=== PATIENT | female | born 1950 | race African-American/Black ===

== ENCOUNTER 2018-09-08 17:58 | Inpatient (IN) | payer OTHER, MEDICARE ==
[~2018-09-08] VITALS: Ht 172.7 cm; Wt 126.1 kg
[~2018-09-08 17:58] MED LIST: ATA25 PO; BISA5ECT2 PO; DEPER500 PO; DIPH25TA53 PO; DOCU100C5 PO; ESCI20TA PO; ESCI20TA47 PO; METF500T PO; SIMV20TA1 PO; VIC PO
--- NOTE | 2018-09-08 18:00 | NUR ---
PT BIBA BLS TO BED 5
[2018-09-08] MEDS ORDERED: NACL 0.9% 1,000 ML IV ONE (18:05)
[2018-09-08 18:13] VITALS: BP 149/86
--- NOTE | 2018-09-08 18:21 | NUR ---
DILAN WITH C/O BEHAVIORAL OUTBURST AT [facility]. STAFF REPORTS THAT SHE HAS BEEN REFUESING TO TAKE HER MEDICATIONS FOR 2 MONTHS AND TODAY BECAME VERY AGGRESSIVE AND WAS BROUGHT IN BY [facility] ACCOMPANIED BY SEAMUS MESA WHO PLACED HER ON A 51-50 HOLD DUE TO HOMICIDAL THOUGHTS AND THREATS AND RISK TO SELF DUE TO REFUESING LIFE SUSTAINING MEDICATIONS. UPON ARRIVAL PATIENT ANGRY, YELLING, THREATENING STAFF. HX:DM BIPOLAR, HTN, HLD, HYPOTHYROIDISM, DEMENTIA, MODD DISORDER, IMPULSE DISORDER
[2018-09-08 18:38] LABS: BASOPHILS # (AUTO) 0.1 K/uL (0.00-0.22); BASOPHILS % (AUTO) 1.2 % (0.0-2.0); EOSINOPHILS # (AUTO) 0.4 K/uL (0-0.4); EOSINOPHILS % (AUTO) 5.7 % (0.0-4.0); HEMATOCRIT 45.4 % (36-48); HEMOGLOBIN 14.7 g/dL (12.0-16.0); LYMPHOCYTES # (AUTO) 2.1 K/uL (2.5-16.5); LYMPHOCYTES % (AUTO) 32.5 % (20.5-51.1); MEAN CORPUSCULAR HEMOGLOBIN 27 pg (27-31); MEAN CORPUSCULAR HGB CONC 32 g/dL (33-37); MEAN CORPUSCULAR VOLUME 83.5 fL (80-94); MONOCYTES # (AUTO) 0.6 K/uL (0.8-1.0); MONOCYTES % (AUTO) 10.2 % (1.7-9.3); NEUTROPHILS # (AUTO) 3.2 K/uL (1.8-7.7); NEUTROPHILS % (AUTO) 50.4 % (42.2-75.2); PLATELET COUNT (AUTO) 272 K/uL (140-450); RED BLOOD CELL COUNT(AUTO) 5.43 MIL/uL (4.20-5.40); RED CELL DISTRIBUTION WIDTH 14.5 % (11.6-13.7); WHITE BLOOD COUNT (AUTO) 6.3 K/uL (4.8-10.8)
--- NOTE | 2018-09-08 18:50 | NUR ---
Dr. Gupta at bedside.
--- NOTE | 2018-09-08 18:53 | NUR ---
Note sherly in EDM - 09/08/18 at 1853 by TORREY DILAN WITH C/O BEHAVIORAL OUTBUSRT AT [facility]. STAFF REPORTS THAT SHE HAS BEEN REFUESING TO TAKE HER MEDICATIONS FOR 2 MONTHS AND TODAY BECAME VERY AGGRESSIVE AND WAS BROUGHT IN BY [facility] ACCOMPANIED BY SEAMUS MESA WHO PLACED HER ON A 51-50 HOLD DUE TO HOMICIDAL THOUGHTS AND THREATS AND RISK TO SELF DUE TO REFUESING LIFE SUSTAINING MEDICATIONS. HX:DM BIPOLAR, HTN, HLD, HYPOTHYROIDISM, DEMENTIA, MODD DISORDER, IMPULSE DISORDER
[2018-09-08] MEDS ORDERED: diphenhydrAMINE 50 MG/ML VIAL IM ONE (18:55)
[2018-09-08] MEDS ORDERED: LORazepam 2 MG/ML VIAL IM ONE (18:55)
[2018-09-08] MEDS ORDERED: HALOPERIDOL IM 5 MG/ML VIAL IM ONE (18:55)
[2018-09-08 19:01] LABS: ACETAMINOPHEN < 0.5 ug/ml (10-30); SALICYLATE < 2.8 mg/dL (2.8-20.0)
--- NOTE | 2018-09-08 19:05 | NUR ---
REPORT GIVEN TO [facility] FOR CONTINUED CARE. SITTER AT BEDSIDE.
[2018-09-08 19:12] LABS: PROTHROMBIN TIME 10.1 secs (10.8-13.4)
--- NOTE | 2018-09-08 19:15 | NUR ---
RESTRAINT LOG DOCUMENTED AND STARTED BY AM NURSE.
--- NOTE | 2018-09-08 19:15 | NUR ---
CRITICAL LAB VALUE REPORTED TO DR CARRINGTON, LACTATE ACID 2.3
[2018-09-08 19:18] LABS: ANION GAP 18.3 (8-16); CARBON DIOXIDE 21.6 mmol/L (21-32); CREATININE 1.4 mg/dL (0.6-1.3); POTASSIUM 3.9 mmol/L (3.5-5.1)
[2018-09-08 19:25] LABS: ALBUMIN 2.9 g/dL (3.4-5.0); TOTAL BILIRUBIN 0.2 mg/dL (0.0-1.0)
--- NOTE | 2018-09-08 19:31 | NUR ---
PER TELEPSYCH REQEST SENT
[2018-09-08 19:52] LABS: APPEARANCE,URINE CLEAR (CLEAR); BILIRUBIN,URINE NEGATIVE (NEGATIVE); BLOOD, URINE NEGATIVE (NEGATIVE); COLOR,URINE YELLOW (YELLOW); LEUKOCYTE ESTERASE ,URINE NEGATIVE (NEGATIVE); NITRITE, URINE NEGATIVE (NEGATIVE); UGLUCOSE NEGATIVE (NEGATIVE)
[2018-09-08 20:01] LABS: BARBITURATE, URINE NEG. ng/ml (NEG <=200); BENZODIAZEPINE, URINE POS. ng/mL (NEG <=200); CANNABINOID, URINE NEG. ng/mL (NEG <=50); COCAINE, URINE NEG. ng/mL (NEG <=300); OPIATE, URINE NEG. ng/mL (NEG <=2000); PHENCYCLIDINE SCREEN,URINE NEG. ng/mL (NEG <=25)
--- NOTE | 2018-09-08 20:30 | NUR ---
PATIENT CURRENTLY RESTING IN [facility], CALM AND COOPERATIVE. PATIENT BREATHING IS EVEN AND UNLABORED, EQUAL RISE AND FALL OF CHEST. PATIENT DENIES ANY SI/HI AT THIS TIME, SITTER AT BEDSIDE, NO ACUTE DISTRESS NOTED. WILL CONTINUE TO MONITOR
--- NOTE | 2018-09-08 20:30 | NUR ---
ALL RESTRAINTS REMOVED, SKIN INTACT, +PMSC X4. PATIENT CALM COOPERATIVE;VSS; NO ACUTE DISTRESS NOTED, DR CARRINGTON MADE AWARE. SITTER AT BEDSIDE, WILL CONTINE TO MONITOR
--- NOTE | 2018-09-08 22:26 | NUR ---
LM WANG ON SPEAKING WITH PT.
--- NOTE | 2018-09-08 22:33 | NUR ---
DR CHRISTIANSEN FROM TELE PSYCH REMOVED HOLD ON PATIENT, SPOKE TO DR CARRINGTON.
--- NOTE | 2018-09-08 23:38 | NUR ---
DR CARRINGTON AT BEDSIDE
[2018-09-08] MEDS ORDERED: ZIPRASIDONE MESYLATE 20 MG/ML VIAL IM ONE (23:40)
--- NOTE | 2018-09-08 23:40 | NUR ---
PATIENT BEGAN TO MAKE THREATS STATING "YOU'RE ALL GOING TO " WHEN ASKED WHO IS GOING TO KILL US? PATIENT STATED "YOU'LL SEE" DR CARRINGTON MADE AWARE, NO NEED TO PUT PATIENT BACK ON HOLD. CHARGE NURSE RAIN AT BEDSIDE, WITNESSED AND HEARD ENTIRE CONVERSATION
[2018-09-08] MEDS ORDERED: WATER STERILE 10 ML MC ONE (23:53)
--- NOTE | 2018-09-09 | NUR ---
PT REFUSE VITAL SIGNS. NO S/S OF PAIN OR DISTRESS NOTED ALL FALLS PRECAUTIONS IN PLACE.
[2018-09-09] MEDS ORDERED: [UNRECOGNIZED DRUG - OTHER] PO SCH (00:05)
[2018-09-09] MEDS ORDERED: ACETAMINOPHEN PO SCH (00:05)
[2018-09-09] MEDS ORDERED: ONDANSETRON 4 MG/2 ML VIAL IVP PRN (00:10)
[2018-09-09] MEDS ORDERED: ACETAMINOPHEN 325 MG TAB PO PRN (00:10)
[2018-09-09] MEDS ORDERED: ALBUTEROL 0.083% 2.5 MG/3 ML NEBU INH PRN (00:10)
[2018-09-09 00:45] VITALS: BP 144/71
--- NOTE | 2018-09-09 00:45 | NUR ---
Patient will be admitted to care of DR AKINS. Admited to MS 124A. Will go to room 124A. Belongings list completed. Report to NEGRO NAJERA .
--- NOTE | 2018-09-09 01:10 | NUR ---
RECEIVED PT FROM ER NURSE VIA ERICKSON, PT AWAKE, ALERT OX 3. PT UNCOOPERATIVE, PT REFUSED TO BE TAKEN VITAL SIGNS. REFUSED MRSA SWAB, WITNESSED BY ED STAFF. PT RECEIVED W/ NS INFUSING AT 100 ML/HR AT INDEX FINGER LEFT G 20. ORIENTED TO UNIT, PLACED AT LOWEST BED POSITION, CALL LIGHTS WITHIN REACH AND BED ALARM ACTIVATED. WILL CONTINUE TO MONITOR.
--- NOTE | 2018-09-09 01:14 | NUR ---
PT PLACED IN COMFORTABLE POSITION. CHECKED THE NS AT LEFT INDEX FINGER, STILL INFUSING AND PATENT. PT INTERVIEWED BUT PT REFUSED TO ANSWER QUESTION. LEFT ON BED, PT TRYING TO SLEEP.
--- NOTE | 2018-09-09 01:25 | NUR ---
RECEIVED PATIENT ON ROOM AIR. HOWEVER, PATIENT REFUSING TO BE ASSESSED AT THIS TIME. STATES "NO! I AM FINE." REFUSES AUSCULTATION AND PULSE OX MONITOR. NO RESPIRATORY DISTRESS NOTED AT THIS TIME. NO PRN HHN GIVEN. WILL CONTINUE TO MONITOR.
--- NOTE | 2018-09-09 03:30 | NUR ---
BM X 1; URINE X 2. CHANGED PT AND TURNED PT TO SIDE
--- NOTE | 2018-09-09 04:00 | NUR ---
TIED TO TAKE THE VITAL SIGNS OF PT. PATIENT REFUSED.
--- NOTE | 2018-09-09 06:00 | NUR ---
AGAIN TRIED VITAL SIGNS. PT WAS CURTLY SAYING SOMETHING INCOMPREHENSIBLE, AND NOT ALLOWING ME TO TAKE HER VITAL SIGNS.
--- NOTE | 2018-09-09 07:30 | NUR ---
RECEIVED BEDSIDE REPORT FROM REINALDO TOM. PT STABLE, SLEEPING, BUT EASILY AROUSABLE. NO SIGNS OF DISTRESS NOTED. NO REDNESS ,SWELLING, OR INFLAMMATION NOTED ON IV SITE. CALL GREEN WITHIN REACH. BED IN LOWEST POSITION. SAFETY MEASURES IN PLACE. PLAN OF CARE REVIEWED.
--- NOTE | 2018-09-09 08:46 | NUR ---
PATIENT HAS BEEN SCREENED AND CATEGORIZED HIGH NUTRITION RISK. PATIENT WILL BE SEEN WITHIN 1-2 DAYS OF ADMISSION. 09/09/18MAYTE MONTIEL RD
[2018-09-09] MEDS ORDERED: metFORMIN 500 MG TAB PO SCH (09:00)
[2018-09-09] MEDS: DOCUSATE SODIUM 100 MG GELCAP PO SCH ×2 (09:00→21:00)
[2018-09-09] MEDS: DIVALPROEX 500 MG TABER PO SCH ×2 (09:00→21:00)
[2018-09-09] MEDS: BISACODYL 5 MG TABEC PO SCH ×2 (09:00→21:00)
[2018-09-09] MEDS: hydrOXYzine HCL 25 MG TAB PO SCH ×2 (09:00→21:00)
[2018-09-09] MEDS ORDERED: NON-FORMULARY ITEM (Docusate Sodium 100 MG) PO SCH (09:00)
[2018-09-09] MEDS: ESCITALOPRAM 20 MG TAB PO SCH (09:00)
--- NOTE | 2018-09-09 09:40 | NUR ---
SCHEDULED MEDICATIONS NOT GIVEN DUE TO PT REFUSED ALL MEDICATIONS. PT STABLE AND AWAKE.
--- NOTE | 2018-09-09 10:00 | NUR ---
DR AYALA AT THE BEDSIDE.
--- NOTE | 2018-09-09 10:30 | NUR ---
Dope Mixer Note: I received a call from information security officer Tiffanie from [facility] . She stated patient has been living at their facility since 2012. She stated patient's conservator is Kike Tarango . I requested Tiffanie to please fax me conservatorship documents indicating Kike is patient's conservator. I provided Tiffanie with case management/criminal justice social worker dept fax number. Tiffanie stated patient is on a 7 day bed hold. She told me prior to hospital admission patient was refusing medication and was combative at [facility]. She stated patient has a daughter named Fe Tiago and reported Fe is not involved with patient's care at [facility]. Tiffanie told me she has not talked to Fe before.
--- NOTE | 2018-09-09 11:30 | NUR ---
Employee Placement Specialist Note: I called and spoke with adult services librarian Tiffanie from [facility] . I informed Tiffanie that I have not received conservator documents. She told me she will fax them to me soon.
--- NOTE | 2018-09-09 11:32 | NUR ---
09/09/18 RD INITIAL ASSESSMENT COMPLETED PLEASE REFER TO NUTRITION ASSESSMENT UNDER CARE ACTIVITY FOR ESTIMATED NUTRITIONAL NEEDS. 1. CONTINUE CCHO 60 GM DIET TOLERATED 2. PT REFUSED DIET EDUCATION ON WEIGHT AND DIABETES 3. RD TO FOLLOW-UP 3-5 DAYS, MODERATE RISK MAYTE MONTIEL RD
--- NOTE | 2018-09-09 11:40 | NUR ---
RECEIVED ORDER FOR PSYCH FACILITY, PATIENT ON [address]. CALLED [facility], AND SPOKE WITH MICHELLE. SHE SAID THAT THEY HAVE NOT BEEN ABLE TO MOVE ANY PATIENTS FOR LAST 4 DAYS. DID FAX ORDER, FACE SHEET, MEDICATION SHEET, H&P AND 5150 HOLD TO THEM AT [phone]
--- NOTE | 2018-09-09 13:00 | NUR ---
PT REPOSITIONED, LINENS AND GOWN CHANGED. PT STABLE.
--- NOTE | 2018-09-09 15:06 | NUR ---
No updates from contacted facilties at this time. will continue to look for placement throughout shift. will update unit when new information has been received. No beds available at following hospitals: Called [facility] and s/w Tiara, No vacancies at this time. Called [facility] and s/w Kurt, No Beds available today. Called [facility] and s[facility]w [facility], No beds available today. Called [facility] and s/w Mady, reviewing charts at this time. Called [facility] and s/w Barbara, no Beds at this time. Called [facility] and s/w Favian, No beds available at this time. Called [facility] and s/w Rosy, No vacancies at this time. Called [facility] and s/w Reinaldo, they have no beds at this time and are still reviewing charts. Called [facility] and s/w Isaac they have no beds at this time and are still reviewing charts. Called [facility] and s/w Annelise, they have no beds at this time and are still reviewing charts.
--- NOTE | 2018-09-09 15:07 | NUR ---
Packet faxed to [facility] for review.
--- NOTE | 2018-09-09 15:51 | NUR ---
Machine Mover Note: I called public guardian/conservator office and spoke with Emma. Per Emma, Kike Tarango is patient's conservator. I requested Emma to please fax me conservator documents. I provided her with case management/social media coordinator fax number. Per Emma, she Kike is not in the office today and she will fax me documents soon.
--- NOTE | 2018-09-09 16:30 | NUR ---
PT REFUSED VITAL SIGNS TO BE TAKEN. PT STABLE AND AWAKE.
--- NOTE | 2018-09-09 19:13 | NUR ---
RECEIVED PATIENT ON ROOM AIR. NO DISTRESS NOTED. PATIENT DENIES SHORTNESS OF BREATH. NO HHN GIVEN; NOT INDICATED AT THIS TIME. PATIENT REFUSES ASSESSMENT. PATIENT REFUSES AUSCULTATION. PATIENT APPEARS IRRITABLE. PATIENT STATES "I DON'T NEED ANYTHING! THERE'S NOTHING WRONG WITH ME, I'M HEALTHY!". RN MADE AWARE OF PATIENT REFUSAL TO BE ASSESSED. WILL CONTINUE TO MONITOR.
--- NOTE | 2018-09-09 19:20 | NUR ---
RECEIVED REPORT FORM BRANDI BURNS RN DAYSHIFT NURSE AT BEDSIDE FOR CONTINUITY OF CARE, PT IN STABLE CONDITION.
--- NOTE | 2018-09-09 19:25 | NUR ---
ENDORSED PT TO REINALDO LEACH FOR CONTINUITY OF CARE. PT STABLE, AWAKE, AND ALERT.
--- NOTE | 2018-09-09 20:00 | NUR ---
PT REFUSED AL VITALS SIGNS SAYING "IM FINE". PT HAS HX OF COMBATIVE BEHAVIOR, PRIMARY NURSE VERBALIZED UNDERSTANDING AND LEFT ROOM.
[2018-09-09] MEDS: SIMVASTATIN 20 MG TAB PO SCH (21:00)
--- NOTE | 2018-09-09 21:00 | NUR ---
PT REFUSED ALL MEDICATIONS. WILL TRY LATER AND OFFER MEDICATIONS
--- NOTE | 2018-09-09 22:00 | NUR ---
PT OFFERED MEDICATIONS DUE AGAIN, PT HAD JUST BEEN TURNED AND CHANGE. PT SAID I AM CHANGING I DONT WANT ANY MEDICATION. NURSE VERBALIZED UNDERSTANDING.
--- NOTE | 2018-09-09 23:00 | NUR ---
PT IN BED SLEEPING SIDE RAILS UP X2 AND CALL GREEN IN REACH.
--- NOTE | 2018-09-10 00:29 | NUR ---
Follow up calls were made to the contracted psych facilities. [facility], spoke with Duane. [facility], spoke with Joaquin. [facility], spoke with Rob. [facility], spoke with Francesca. [facility], spoke with Naila. [facility], spoke with Sarita. will notify the unit when there is new information.
--- NOTE | 2018-09-10 01:00 | NUR ---
PT TURNED AND CHANGED AND REPOSITIONED.
--- NOTE | 2018-09-10 03:00 | NUR ---
CHECKED IN ON PT, SHE SAID GET OUT OF HERE PRIMARY NURSE LEFT.
--- NOTE | 2018-09-10 05:45 | NUR ---
PT TURNED AND CHANGED.
--- NOTE | 2018-09-10 06:30 | NUR ---
PT REFUSE LAB DRAWS.
--- NOTE | 2018-09-10 07:20 | NUR ---
GAVE REPORT TO GENNARO RN DAYSHIFT NURSE AND DEACON RN DAYSHIFT NURSE AT BEDSIDE. PT IN STABLE CONDITION BUT WAS VERY RUDE AND INSULTING TO ONCOMING NURSES SAYING" I DON;T WANT YOU TO TAKE CARE OF ME, YOUR A DIKE". OTHERWISE PT IN BED RESTING QUIETLY WITH NO S/S OF PAIN OR DISTRESS NOTED.
--- NOTE | 2018-09-10 07:21 | NUR ---
RECEIVED BEDSIDE REPORT FROM TOOL DESIGNER APPRENTICE NURSE. PATIENT REFUSES TO STATE NAME AND OR ANSWER ANY OTHER QUESTIONS AT THIS TIME. PATIENT IS BEDBOUND AND INCONTINENT AND WILL ALLOW STAFF TO CLEAN AND REPOSITION HER, BUT WILL NOT ALLOW FOR NURSING ASSESSMENTS OR FOR VITAL SIGNS TO BE TAKEN. SHE STATES "I AM HEALTHY NOTHING IS WRONG WITH MY BLOOD PRESSURE OR MY HEALTH, YOU CAN GO DO SOMETHING ELSE." NO SIGNS OF DISTRESS ON RA, BED IS IN LOW POSITION, CALL LIGHT IS WITHIN REACH.
--- NOTE | 2018-09-10 08:28 | NUR ---
PT NON COOPERATIVE. VERY AGGRESSIVE. REFUSED ALL FORMS OF TX OR ASSESSMENT. VERBALLY ABUSIVE.
[2018-09-10] MEDS: hydrOXYzine HCL 25 MG TAB PO SCH ×2 (09:00→21:00)
[2018-09-10] MEDS: DOCUSATE SODIUM 100 MG GELCAP PO SCH ×2 (09:00→21:00)
[2018-09-10] MEDS: ESCITALOPRAM 20 MG TAB PO SCH (09:00)
[2018-09-10] MEDS: BISACODYL 5 MG TABEC PO SCH ×2 (09:00→21:00)
[2018-09-10] MEDS: DIVALPROEX 500 MG TABER PO SCH ×2 (09:00→21:00)
--- NOTE | 2018-09-10 09:59 | NUR ---
PATIENT REFUSED ALL 0900 MEDICATIONS. LISTED EACH MEDICATION AND EDUCATED PATIENT ON RISKS ASSOCIATED WITH REFUSAL OF MEDICATIONS. PATIENT AGAIN REFUSED. DR. LE AWARE OF PATIENT REFUSAL. PATIENT IN BED IN NO DISTRESS. WILL CONTINUE TO MONITOR THE PATIENT
--- NOTE | 2018-09-10 11:02 | NUR ---
PATIENT IS SLEEPING. NO SIGNS OF DISTRESS ON RA. WILL CONTINUE TO MONITOR THE PATIENT. CALL LIGHT WITHIN PATIENTS REACH
--- NOTE | 2018-09-10 12:49 | NUR ---
PATIENT DID NOT EAT LUNCH. SHE JUST HAD HER JUICE. SHE SAID SHE HAS NO APPETITE
--- NOTE | 2018-09-10 13:48 | NUR ---
PATIENT SLEEPING IN BED, NO SIGNS OF DISTRESS, BED IN LOW POSITION, CALL LIGHT IN REACH. WILL CONTINUE TO MONITOR.
--- NOTE | 2018-09-10 15:22 | NUR ---
PATIENT RESTING IN BED IN THE RIGHT LATERAL POSITION, AWAKE, BUT RESTING. NO SIGNS OF DISTRESS, DENIES PAIN, AND IS STILL REFUSING ANY OTHER ASSESSMENT. ASKED IF THERE WAS ANYTHING I COULD GET HER OR DO FOR HER AND SHE SAID "NO". BED IS IN LOW POSITION, CALL LIGHT IS WITHIN REACH.
--- NOTE | 2018-09-10 17:07 | NUR ---
PATIENT IS AWAKE, LAYING IN BED. NO SIGNS OF DISTRESS. WILL CONTINUE TO MONITOR THE PATIENT
--- NOTE | 2018-09-10 19:16 | NUR ---
GAVE BEDSIDE REPORT TO DRYWALL CARRIER NURSE, PATIENT ENDORSED IN STABLE CONDITION
--- NOTE | 2018-09-10 19:35 | NUR ---
RECEIVED BEDSIDE REPORT FROM DAY SHIFT NURSE FOR CONTINUITY OF CARE. PATIENT AWAKE, ALERT, RESPIRATION EVEN UNLABORED ON ROOM AIR. DENIES PAIN. SKIN IS WARM AND DRY. ABLE TO REPOSITION HERSELF. ABLE TO VERBALIZES NEEDS. REFUSED VITAL SIGNS TO BE TAKEN. SHE STATES" I AM HEALTHY NOTHING IS WRONG WITH ME." EDUCATED THE RISK AND BENEFITS X3 STILL REFUSED. PLAN OF CARE WAS DISCUSSED. BED IS AT LOW POSITION. ALL SAFETY MEASURE IN PLACE. CALL LIGHT WITHIN REACH AND VERBALIZES ITS USE. WILL CONTINUE TO MONITOR.
[2018-09-10] MEDS: SIMVASTATIN 20 MG TAB PO SCH (21:00)
--- NOTE | 2018-09-10 21:20 | NUR ---
PATIENT AWAKE, ALERT RESPIRATION EVEN UNLABORED ON ROOM AIR. PATIENT REFUSED ALL 2100 MEDICATION. EDUCATED PATIENT ON RISK AND BENEFITS X3 STILL REFUSED. WILL CONTINUE TO MONITOR
--- NOTE | 2018-09-10 22:00 | NUR ---
PATIENT LYING IN BED SLEEPING RESPIRATION EVEN UNLABORED ON ROOM AIR. DENIES PAIN. NO DISTRESS NOTED. CALL LIGHT WITHIN REACH AND VERBALIZES ITS USE. WILL CONTINUE TO MONITOR.
--- NOTE | 2018-09-11 | NUR ---
PATIENT REFUSED VITAL SIGNS. EDUCATED THE RISK AND BENEFITS X2 REFUSED. NO DISTRESS NOTED. WILL CONTINUE TO MONITOR.
--- NOTE | 2018-09-11 01:50 | NUR ---
CHECKED PATIENT. PATIENT SLEEPING RESPIRATION EVEN UNLABORED ON ROOM AIR. NO DISTRESS NOTED. WILL CONTINUE TO MONITOR.
--- NOTE | 2018-09-11 04:33 | NUR ---
at this time there are still no beds available at the following facilities, [facility], [place], [facility], and [facility] , will endorse to incoming shift to continue to look for placement.
--- NOTE | 2018-09-11 04:38 | NUR ---
CHECKED PATIENT. PATIENT SLEEPING RESPIRATION EVEN UNLABORED ON ROOM AIR. NO DISTRESS NOTED. WILL CONTINUE TO MONITOR
--- NOTE | 2018-09-11 06:44 | NUR ---
PATIENT REFUSED BLOOD DRAW. EDUCATED THE RISK AND BENEFITS X2 STILL REFUSED. WILL CONTINUE TO MONITOR.
--- NOTE | 2018-09-11 07:06 | NUR ---
ENDORSED PATIENT TO DAY SHIFT NURSE FOR CONTINUITY OF CARE. PATIENT STABLE AT THIS TIME.
--- NOTE | 2018-09-11 07:07 | NUR ---
RECEIVED BEDSIDE REPORT FROM PROGRAM RESEARCH SPECIALIST NURSE. PATIENT IS REFUSING TO ANSWER ANY QUESTIONS, PATIENT IS UNCOOPERATIVE. SKIN IS INTACT. PATIENT BEDBOUND, INCONTINENT. FALL RISK PROTOCOL IN PLACE. NO IV ACCESS, PATIENT REFUSED. BED IN LOW POSITION. CALL LIGHT WITHIN REACH, WILL CONTINUE TO MONITOR THE PATIENT.
--- NOTE | 2018-09-11 08:00 | NUR ---
PATIENT REFUSES TO GET VITALS CHECKS. EDUCATED ON THE IMPORTANCE TO CHECK VITALS AND THE RISKS OF REFUSING. SHE SAID SHE STILL DOES NOT WANT US TO CHECK.
--- NOTE | 2018-09-11 08:26 | NUR ---
Pt refuse all care. No tx given or SOB noted at this time. Will continue to monitor Pt.
[2018-09-11] MEDS: DOCUSATE SODIUM 100 MG GELCAP PO SCH ×2 (09:00→21:00)
[2018-09-11] MEDS: DIVALPROEX 500 MG TABER PO SCH ×2 (09:00→21:00)
[2018-09-11] MEDS: hydrOXYzine HCL 25 MG TAB PO SCH ×2 (09:00→21:00)
[2018-09-11] MEDS: BISACODYL 5 MG TABEC PO SCH ×2 (09:00→21:00)
[2018-09-11] MEDS: ESCITALOPRAM 20 MG TAB PO SCH (09:00)
--- NOTE | 2018-09-11 09:32 | NUR ---
PATIENT REFUSED ALL MEDICATIONS. PATIENT SAID GET OUT I DONT WANT YOU HERE. SHE REFUSES ALL TREATMENT AT THIS TIME. DR LE IS AWARE. PATIENT WAITING FOR IN PSYCH PLACEMENT. CALL LIGHT WITHIN REACH. WILL CONTINUE TO MONITOR THE PATIENT Addendum: 09/11/18 at 0939 by Sharonda Benson RN EDUCATED THE RISKS OF REFUSING
--- NOTE | 2018-09-11 11:00 | NUR ---
PATIENT LAYING IN BED. ASKED IF SHE NEEDED ANYTHING AT THIS TIME, SHE SAID NO. BED IN LOW POSITION. CALL LIGHT WITHIN REACH. PATIENT ABLE TO MAKE NEEDS KNOWN. WILL CONTINUE TO MONITOR
--- NOTE | 2018-09-11 12:00 | NUR ---
SEEN BY DR. AYALA AND RE EVALUATED PATIENT. PATIENT CLEARED BY PYJUAN AND CAN GO BACK TO [facility], I CALLED [facility] AND SPOKE TO GALA SHE SAID NO BED AVAILABLE TODAY AND THEY WILL HAVE BED FOR HER TOMORROW. WILL ENDORSE TO THE NURSE ALYSE.
--- NOTE | 2018-09-11 12:52 | NUR ---
NO TX INDICATED AT THIS TIME. PT AWAKE AND ALERT.
--- NOTE | 2018-09-11 13:00 | NUR ---
PATIENT IS SLEEPING. NO SIGNS OF DISTRESS. WILL CONTINUE TO MONITOR. CALL LIGHT WITHIN REACH
--- NOTE | 2018-09-11 15:30 | NUR ---
PATIENT SITTING IN BED, NO SIGNS OF DISTRESS. WILL CONTINUE TO MONITOR THE PATIENT.
--- NOTE | 2018-09-11 16:00 | NUR ---
PATIENT REFUSING VITALS. EDUCATED ON THE IMPORTANCE OF THE NEED TO CHECK VITALS AND THE RISKS. PATIENT STILL REFUSED. SHE SAID SHE IS HEALTHY AND DOES NOT NEED HER VITALS CHECKED
--- NOTE | 2018-09-11 17:40 | NUR ---
PATIENT IS SLEEPING. NO SIGNS OF DISTRESS. WILL CONTINUE TO MONITOR THE PATIENT
--- NOTE | 2018-09-11 19:05 | NUR ---
gave bedside report to shift manager nurse. patient endorsed in stable condition
--- NOTE | 2018-09-11 19:15 | NUR ---
RECEIVED REPORT FROM GENNARO NAJERA DAYSHIFT NURSE FOR CONTINUITY OF CARE, PT IN BED SLEEPING NO S/S OF PAIN OR DISTRESS NOTED. ALL FALLS PRECAUTIONS IN PLACE.
--- NOTE | 2018-09-11 20:00 | NUR ---
PT IN BED SLEEPING NO S/S OF PAIN OR DISTRESS NOTED AND ALL FALLS PRECAUTIONS IN PLACE. WILL RETURN TO CHECK PT FOR VITAL SIGNS IF SHE WILL ALLOW, DUE TO PT CONSTANT REFUSAL OF V/S AND MEDICATION.S
--- NOTE | 2018-09-11 20:30 | NUR ---
PT IN BED AWAKE. NURSE WENT TO ROOM AND PT SAID WHAT DO YOU WANT? PRIMARY NURSE TO CHECK ON YOU AMD PT SAID GO AWAY AND WAVED HER HAND MOTIONING NURSE TO LEAVE. PRIMARY NURSE LEFT. PT CALM WITH NO S/S OF PAIN OR DISTRESS NOTED. BED LOW AND SIDE RAILS UP X2. WILL CONTINUE TO MONITOR PT FOR SAFETY, PAIN AND ANY CARE THAT SHE WILL ALLOW TO BE PROVIDED.
[2018-09-11] MEDS: SIMVASTATIN 20 MG TAB PO SCH (21:00)
--- NOTE | 2018-09-11 23:30 | NUR ---
PT REFUSES V/S, WHEN NURSE ENTERED ROOM FOR ROUNDS PT SAID WHAT DO YOU WANT, GET OUT OF HERE. NURSE LEFT.
--- NOTE | 2018-09-12 02:00 | NUR ---
PT REQUEST TO BE CHANGED AND STAFF CHANGED PT. PT CONTINUES TO REFUSE V/S AND MEDICATION.
--- NOTE | 2018-09-12 05:16 | NUR ---
PT SLEEPING SOUNDLY NO S/S OF PAIN OR DISTRESS NOTED , ALL FALLS PRECAUTIONS IN PLACE.
--- NOTE | 2018-09-12 07:20 | NUR ---
REPORT GIVEN TO MAGDY NAJERA DAYSHIFT NURSE AT BEDSIDE PT IN STABLE CONDITION.
--- NOTE | 2018-09-12 07:25 | NUR ---
RECEIVED PT FROM MIGHT SHIFT NURSE, HANY, PT IS AWAKE AND LYING ON THE BED WITH SIDE RAILS UP AND CALL LIGHT WITHIN REACH, PT IS NON-COMPLIANT AND HAS NO LINE ACCESS BECAUSE PT PULLED IT OUT AND PT DOES NOT WANT ANOTHER INSERTION OF IV PER ENDORSEMENT FROM COLLIERY CLERK NURSE. NO SIGN OF DISTRESS NOTED AND WILL MONITOR PT.
--- NOTE | 2018-09-12 07:50 | NUR ---
PT IS AWAKE AND WAS ASKED FOR A VITAL SIGNS CHECKED BUT PT GOT MAD AND STARTED RAISING HER VOICE AND VERBALIZED THAT SHE DOES NOT WANT TO BE BOTHERED. WILL MONITOR PT.
--- NOTE | 2018-09-12 07:54 | NUR ---
PATIENT REFUSES ASSESSMENT. REFUSES AUSCULTATION. REFUSES PULSE OXIMETER CHECK. NO SOB NOTED. NO RESPIRATORY DISTRESS NOTED AT THIS TIME. WILL CONTINUE TO MONITOR.
--- NOTE | 2018-09-12 08:30 | NUR ---
SECOND ATTEMPT WAS MADE TO THE PT FOR A VITAL SIGNS CHECKED AND REPOSITIONING WITH THE WATER TENDER AND SECURITY, PILI BUT PT REFUSED TO BE BOTHERED AND RAISED HER VOICE. WILL MONITOR PT.
--- NOTE | 2018-09-12 09:28 | NUR ---
CALLED [facility] AND SPOKE WITH RASTA. SHE SAID SHE DIDN'T HAVE ANY INFORMATION ABOUT THIS PATIENT . I INFORMED RASTA I FAXED INFORMATION TO THEM ON WEDNESDAY, SO I REFAXED INFORMATION TO HER TODAY.. FAX [phone]
--- NOTE | 2018-09-12 09:44 | NUR ---
SPOKE TO DR. CRUZ AND INFORMED THE MD ABOUT THE PT REFUSING ALMOST ALL THE MANAGEMENTS GIVEN TO HER. MD ACKNOWLEDGED AND VERBALIZED TO JUST WAIT FOR PLACEMENT.
[2018-09-12] MEDS: DIVALPROEX 500 MG TABER PO SCH (09:55)
[2018-09-12] MEDS: BISACODYL 5 MG TABEC PO SCH (09:55)
[2018-09-12] MEDS: DOCUSATE SODIUM 100 MG GELCAP PO SCH (09:55)
[2018-09-12] MEDS: hydrOXYzine HCL 25 MG TAB PO SCH (09:55)
[2018-09-12] MEDS: ESCITALOPRAM 20 MG TAB PO SCH (09:55)
--- NOTE | 2018-09-12 09:55 | NUR ---
PT IS AWAKE AND WAS INFORMED ABOUT THE MEDICATIONS TO BE GIVEN BUT PT REFUSED AND VERBALIZED TO LEAVE HER ALONE.
--- NOTE | 2018-09-12 12:50 | NUR ---
CALLED [facility] AND SPOKE WITH MIRLANDE. INFORMED HER THAT THE PATIENT HAS BEEN CLEARED BY PSYCH.
--- NOTE | 2018-09-12 13:02 | NUR ---
PT REQUESTED TO BE REPOSITIONED AND JUST ASKED FOR A TOWEL AND GOWN. WILL MONITOR PT.
--- NOTE | 2018-09-12 14:10 | NUR ---
[employer] Member Note: Per Abdifatah from [facility] , patient can return to room 30B after 4pm today, accepting physician is , Occupational Therapist Rehab Manager Gladys singh aware.
--- NOTE | 2018-09-12 14:13 | NUR ---
PT IS AWAKE AND LYING ON THE BED, CALM, NO SIGN OF DISTRESS NOTED AND WILL CONTINUE TO BE MONITORED.
--- NOTE | 2018-09-12 14:36 | NUR ---
SPOKE WITH KATIUSKA FROM [facility]. THE AUTH FOR TRANSPORT IS [id number]
--- NOTE | 2018-09-12 14:57 | NUR ---
Psychological Operations Specialist Note: I called and spoke with patient's public guardian Kike Tarango . I informed her psychiatrist cleared patient and of plan to transfer patient to [facility] today. She stated she wanted to speak with patient�s nurse regarding patient�s medication. I transferred call to nurses� station, Charge Nurse Samantha made aware.
--- NOTE | 2018-09-12 15:32 | NUR ---
Corporate Human Resources Manager Note: Per wire charger Tiffanie from [facility] , she is planning to make arrangements for patient to be transfer to a psychiatric hospital once patient is admitted back at [facility]. Tiffanie is aware patient is returning to [facility] today. I called and spoke with patient's public guardian Kike Tarango , she is in agreement with patient's transfer to [facility] and knows Tiffanie will make arrangements for patient to be transfer to a psychiatric hospital once patient is at [facility], Charge Nurse Samantha made aware. Kike requested patient's discharge summary to be fax to her, fax .
--- NOTE | 2018-09-12 15:37 | NUR ---
CALLED [facility] AND SET UP BARIATRIC GURNEY TRANSPORT FOR 8:30P.Karen CURRAN RN AWARE. PATIENT WILL GO TO ROOM 30B UNDER DR. RESENDIZ.
--- NOTE | 2018-09-12 15:39 | NUR ---
HAYDEE FROM CALLED AND INFORMED THAT PT WILL BE TRANSFERRED BACK [place] [facility] AND WILL BE ROOFING SUPERINTENDENT BY [facility] AT 2030H TONIGHT AND PT WILL BE PLACE IN RM 30-B UNDER THE SERVICE OF DR. RESENDIZ, CALL BACK NO. IS [phone] TO GIVE REPORT.
--- NOTE | 2018-09-12 17:09 | NUR ---
PT IS QUIET AND SLEEPING NOW.
--- NOTE | 2018-09-12 17:15 | NUR ---
CALLED [facility] AND GAVE REPORT REGARDING THE STATUS OF THE PT TO REINALDO HAMMER, INFORMED RN THAT PT WILL BE PICKED UP BY [facility] AT 2030 AND PT WILL BE PLACE UNDER THE SERVICE OF DR. RESENDIZ, AND PT WILL BE PUT IN RM 30-B BUT REINALDO HAMMER FROM [facility] SAID THAT PT WILL BE TRANSFERRED TO RM 48-C.
--- NOTE | 2018-09-12 18:00 | NUR ---
PT WAS INFORMED THAT SHE WILL BE TRANSFERRED BACK TO [facility] [place], PT WAS HAPPY BUT REFUSED TO HAVE A GOWN CHANGE AND VERBALIZED THAT SHE LIKE THE YELLOW GOWN. CHARGE NURSE BELLE, WAS INFORMED OF THE PT'S BEHAVIOR. PT WAS EATING WELL NOW. WILL ENDORSE PT TO INSTALLATION ENGINEER NURSE.
--- NOTE | 2018-09-12 19:10 | NUR ---
ENDORSED PT TO TESTER EQUIPMENT NURSE, ALYSSA FOR CONTINUITY OF THE DISCHARGE PROCESS, PAPER WORK WAS PREPARED AND HANDED TO SCHOOL SECRETARYTESTER EQUIPMENT ON DUTY.
--- NOTE | 2018-09-12 19:30 | NUR ---
PATIENT TO BE TRANSFERRED BACK TO [facility] [place] DAY SHIFT NURSE CAMELIA STATED REPORT WAS GIVEN, PATIENT HAS NO IV ACCESS, PATIENT REFUSING TO WEAR PINK GOWN. ASKED PATIENT TO CHANGE GOWN PATIENT STATED NO THEY SAID I CAN KEEP THIS ONE. BED ALARM ON
--- NOTE | 2018-09-12 20:43 | NUR ---
PATIENT LEFT TO [facility] WITH [facility]. PATIENT REFUSED TO SIGN D/C PAPERWORK, PUT "UNABLE TO SIGN" TO DOCUMENTATION CHARGE NURSE AWARE, PATIENT LEFT VIA GURNEY PATIENT STABLE.
--- NOTE | 2018-09-13 11:05 | NUR ---
Transit Mix Operator Note: Late entry for 09/12/18: I requested Ground Crewman Aircraft Support Che to please scan patient's public guardian documents into [facility].
== END 2018-09-12 20:30 | DRG 757 ==
LOC: MED 17:58 → MTU 09-09 00:07 → OBSVTOIN 09-09 14:34
PROVIDERS: ADMIT Internal Medicine; ATTEND Internal Medicine
DX: F03.90 Unspecified dementia, unspecified severity, without behavioral disturbance, psychotic disturbance, mood disturbance, and anxiety (principal); N17.9 Acute kidney failure, unspecified; E44.1 Mild protein-calorie malnutrition; E66.01 Morbid (severe) obesity due to excess calories; F22 Delusional disorders; F31.9 Bipolar disorder, unspecified; E11.9 Type 2 diabetes mellitus without complications; E78.5 Hyperlipidemia, unspecified; F29 Unspecified psychosis not due to a substance or known physiological condition; I10 Essential (primary) hypertension; Z68.41 Body mass index [BMI] 40.0-44.9, adult; Z79.84 Long term (current) use of oral hypoglycemic drugs; Z79.899 Other long term (current) drug therapy; Z90.49 Acquired absence of other specified parts of digestive tract
CPT/HCPCS: 96360; 96361; 96372; 99285; G0378; 36415; 71045; 80053; 80305; 81003; 83605; 83880; 84484; 85025; 85610; 85730; 87040; 87086; 93005; G0480; G0482; J3486; J7030